=== PATIENT | male | born 1960 | race African-American/Black ===

== ENCOUNTER 2017-04-16 23:13 | Emergency (ER) | payer MEDICAID ==
[~2017-04-16] VITALS: Ht 165.1 cm; Wt 91.0 kg
[2017-04-17] MEDS ORDERED: FAMOTIDINE 20MG/2ML VIAL IV STA (06:24)
[2017-04-17] MEDS ORDERED: SODIUM CHLORIDE 0.9% 1,000 ML IV ONE ×2 (06:24→09:45)
[2017-04-17] MEDS ORDERED: MORPHINE SULFATE 4 MG/ML CPJ (NOT FOR IM USE) IV ONE (06:30)
[2017-04-17 06:47] LABS: BASOPHILS % 0.8 % (0.0-2.0); EOSINOPHILS % 0.1 % (0.0-5.0); HEMATOCRIT. 44.1 % (42.0-52.0); HEMOGLOBIN. 14.2 g/dL (14.0-18.0); LYMPHOCYTES % 19.3 % (20.0-50.0); MEAN CORPUSCULAR VOLUME 74.5 fL (80.0-94.0); MEAN PLATELET VOLUME 7.6 fl (7.4-10.4); MONOCYTES % 8.2 % (2.0-8.0); NEUTROPHILS % 71.6 % (40.0-76.0); PLATELET 319 x1000/uL (130-400); RED BLOOD CELL COUNT 5.92 mill/uL (4.7-6.1); RED CELL DISTRIBUTION WIDTH 14.4 % (11.6-14.6)
[2017-04-17 06:58] LABS: CLARITY URINE CLEAR (CLEAR); COLOR URINE YELLOW (YELLOW); GLUCOSE URINE 3+ (NEGATIVE); KETONES URINE 1+ (NEGATIVE); LEUKOCYTE ESTERASE URINE NEGATIVE (NEGATIVE); NITRITE URINE NEGATIVE (NEGATIVE); OCCULT BLOOD URINE TRACE (NEGATIVE); PROTEIN URINE 1+ (NEGATIVE); SPECIFIC GRAVITY URINE 1.031 (1.005-1.030); UROBILINOGEN URINE 0.2 E.U./dL (0.2-1.0)
[2017-04-17] MEDS ORDERED: MORPHINE SULFATE 2 MG/ML CPJ (NOT FOR IM USE) IV ONE ×2 (07:00)
[2017-04-17 07:02] LABS: CARBON DIOXIDE 27 mEq/L (21-32); CHLORIDE 97 mEq/L (98-107)
[2017-04-17] MEDS ORDERED: IOHEXOL-300 100 ML BOTTLE ONE (08:52)
[2017-04-17 10:43] VITALS: BP 139/73
== END 2017-04-17 10:46 | disposition home or self-care (01) ==
LOC: ER 23:13
DX: K52.9 Noninfective gastroenteritis and colitis, unspecified (principal); E11.9 Type 2 diabetes mellitus without complications; F17.200 Nicotine dependence, unspecified, uncomplicated
CPT/HCPCS: 36415; 74177; 80053; 81001; 82962; 83690; 85025; 96361; 96374; 96375; 99285; J2270; J3490; J7030; Q9967; Z7610

== ENCOUNTER 2019-09-17 14:25 | Inpatient (IN) | payer MEDICAID ==
[2019-09-17] VITALS (9 sets, daily range): BP systolic 123–158; BP diastolic 66–105
[~2019-09-17] VITALS: Ht 177.8 cm; Wt 78.0 kg
[2019-09-17] MEDS ORDERED: SODIUM CHLORIDE 0.9% 1,000 ML IV ONE (15:16)
[2019-09-17] MEDS ORDERED: HYDRALAZINE 20MG/ML VIAL IV ONE ×2 (15:30→16:15)
[2019-09-17 15:47] LABS: BASOPHILS % 0.6 % (0.0-2.0); HEMATOCRIT. 41.4 % (42.0-52.0); LYMPHOCYTES % 10.1 % (20.0-50.0); MEAN CORPUSCULAR HEMOGLOBIN 23.8 pg (28.0-32.0); MEAN CORPUSCULAR VOLUME 76.2 fL (80.0-94.0); MEAN PLATELET VOLUME 8.5 fl (7.4-10.4); MONOCYTES % 6.2 % (2.0-8.0); NEUTROPHILS % 83.1 % (40.0-76.0); PLATELET 335 x1000/uL (130-400); RED BLOOD CELL COUNT 5.44 mill/uL (4.7-6.1); RED CELL DISTRIBUTION WIDTH 14.2 % (11.6-14.6)
[2019-09-17 15:54] LABS: CHLORIDE 86 mEq/L (98-107)
[2019-09-17 15:55] LABS: CLARITY URINE CLEAR (CLEAR); COLOR URINE YELLOW (YELLOW); KETONES URINE 2+ (NEGATIVE); LEUKOCYTE ESTERASE URINE NEGATIVE (NEGATIVE); NITRITE URINE NEGATIVE (NEGATIVE); OCCULT BLOOD URINE 1+ (NEGATIVE); PROTEIN URINE 1+ (NEGATIVE); SPECIFIC GRAVITY URINE 1.027 (1.005-1.030); UROBILINOGEN URINE 0.2 E.U./dL (0.2-1.0)
[2019-09-17 15:55] LABS: PARTIAL THROMBOPLASTIN TIME 20.2 sec (23.4-31.0); PROTHROMBIN TIME 10.7 sec (9.6-11.0)
[2019-09-17] MEDS ORDERED: LORAZEPAM 2MG/ML CPJ ONE (15:56)
[2019-09-17 15:58] LABS: ETHANOL BLOOD < 10 mg/dL
[2019-09-17 16:00] LABS: BETA HYDROXYBUTYRATE 6.8 mMol/L (0.0-0.3)
[2019-09-17] MEDS ORDERED: LEVETIRACETAM 500MG PREMIX 100 ML IV ONE (16:00)
[2019-09-17] MEDS ORDERED: LORAZEPAM 2MG/ML CPJ IV ONE (16:00)
[2019-09-17] MEDS ORDERED: INSULIN REGULAR (DRIP) 100 UNITS in SODIUM CHLORIDE 0.9% 100 ML IV ONE (16:15)
[2019-09-17] MEDS ORDERED: SODIUM CHLORIDE 0.9% 1,000 ML IV STA (16:15)
[2019-09-17] MEDS ORDERED: LABETALOL 5MG/ML SYR 20 MG/4 ML SYRINGE IV ONE (18:45)
[2019-09-17] MEDS ORDERED: ONDANSETRON HCL 4MG/2ML INJ IV PRN (18:45)
[2019-09-17] MEDS ORDERED: CLONIDINE 0.1MG TABLET PO PRN (18:45)
[2019-09-17] MEDS ORDERED: ACETAMINOPHEN 325MG TABLET PO PRN (18:45)
[2019-09-17] MEDS: SODIUM CHLORIDE 0.9% 1,000 ML IV SCH ×2 (20:30→23:08)
[2019-09-17] MEDS ORDERED: LORAZEPAM 2MG/ML CPJ IV PRN (21:00)
[2019-09-17] MEDS ORDERED: DEXTROSE 50% WATER 50ML SYRINGE IV PRN ×2 (21:00)
[2019-09-17] MEDS: AMLODIPINE 5MG TABLET PO SCH (21:21)
[2019-09-17] MEDS: HYDRALAZINE HCL 100MG TABLET PO SCH (21:21)
[2019-09-17] MEDS: BLOOD SUGAR DIAGNOSTIC STRIP TEST SCH ×3 (21:21→23:08)
[2019-09-18] VITALS (35 sets, daily range): BP systolic 101–192; BP diastolic 55–145
[2019-09-18] MEDS: BLOOD SUGAR DIAGNOSTIC STRIP TEST SCH ×12 (00:04→21:34)
[2019-09-18] MEDS: INSULIN REGULAR (DRIP) 100 UNITS in SODIUM CHLORIDE 0.9% 100 ML IV SCH ×2 (00:04→08:28)
[2019-09-18 00:16] LABS: CHLORIDE 104 mEq/L (98-107)
[2019-09-18 00:22] LABS: PHOSPHORUS 2.6 mg/dL (2.5-4.9)
[2019-09-18] MEDS: DEXT 5%/0.45% NACL 500ML 1,000 ML IV SCH ×2 (00:35→08:24)
[2019-09-18 05:14] LABS: BASOPHILS % 0.5 % (0.0-2.0); EOSINOPHILS % 0.1 % (0.0-5.0); HEMATOCRIT. 42.2 % (42.0-52.0); HEMOGLOBIN. 13.3 g/dL (14.0-18.0); LYMPHOCYTES % 13.7 % (20.0-50.0); MEAN CORPUSCULAR HEMOGLOBIN 23.4 pg (28.0-32.0); MEAN CORPUSCULAR VOLUME 74.1 fL (80.0-94.0); MEAN PLATELET VOLUME 8.4 fl (7.4-10.4); MONOCYTES % 8.1 % (2.0-8.0); NEUTROPHILS % 77.6 % (40.0-76.0); PLATELET 325 x1000/uL (130-400); RED BLOOD CELL COUNT 5.69 mill/uL (4.7-6.1); RED CELL DISTRIBUTION WIDTH 13.7 % (11.6-14.6)
[2019-09-18 05:15] LABS: CHLORIDE 106 mEq/L (98-107)
[2019-09-18 05:21] LABS: PHOSPHORUS 2.7 mg/dL (2.5-4.9)
[2019-09-18] MEDS: PANTOPRAZOLE SODIUM 40 MG/VIAL IV SCH (08:22)
[2019-09-18] MEDS: HYDRALAZINE HCL 100MG TABLET PO SCH ×2 (08:25→21:41)
[2019-09-18] MEDS: AMLODIPINE 5MG TABLET PO SCH (08:25)
[2019-09-18] MEDS ORDERED: DEXTROSE 50% WATER 50ML SYRINGE IV PRN (09:30)
[2019-09-18 10:05] LABS: CHLORIDE 109 mEq/L (98-107)
[2019-09-18 10:24] LABS: *AMPHETAMINES SCREEN URINE NEGATIVE (NEGATIVE); *BARBITURATES SCREEN URINE NEGATIVE (NEGATIVE); *BENZODIAZEPINES SCREEN URINE NEGATIVE (NEGATIVE); *COCAINE SCREEN URINE NEGATIVE (NEGATIVE); CANNABINOID URINE SCREEN NEGATIVE (NEGATIVE); PHENCYCLIDINE URINE SCREEN NEGATIVE (NEGATIVE)
[2019-09-18 10:25] LABS: METHADONE URINE SCREEN NEGATIVE (NEGATIVE); OPIATES URINE SCREEN NEGATIVE (NEGATIVE)
[2019-09-18] MEDS: INSULIN GLARGINE UD 100 UNITS/ML SYR SUBCUT SCH ×2 (11:03→21:43)
[2019-09-18 12:22] LABS: CHLORIDE 106 mEq/L (98-107)
[2019-09-18] MEDS: INSULIN LISPRO 100 UNITS/ML SUBCUT SCH ×3 (12:50→21:42)
[2019-09-18] MEDS ORDERED: DILTIAZEM HCL 5MG/ML 5ML VIAL IV SCH (13:45)
[2019-09-18] MEDS: SODIUM CHLORIDE 0.9% 1,000 ML IV SCH ×2 (14:00→23:34)
[2019-09-18] MEDS: AMIODARONE HCL 200 MG TABLET PO SCH ×2 (15:22→18:53)
[2019-09-18 17:01] LABS: CHLORIDE 108 mEq/L (98-107)
[2019-09-18] MEDS ORDERED: DILTIAZEM HCL 30MG TABLET PO SCH (18:00)
[2019-09-18] MEDS: DILTIAZEM HCL 30MG TABLET PO SCH (18:53)
[2019-09-18 20:34] LABS: CHLORIDE 109 mEq/L (98-107)
[2019-09-19] VITALS (46 sets, daily range): BP systolic 107–163; BP diastolic 54–106
[2019-09-19] MEDS: DILTIAZEM HCL 30MG TABLET PO SCH ×4 (00:21→18:17)
[2019-09-19 05:36] LABS: BASOPHILS % 0.7 % (0.0-2.0); EOSINOPHILS % 0.8 % (0.0-5.0); HEMATOCRIT. 41.1 % (42.0-52.0); HEMOGLOBIN. 13.1 g/dL (14.0-18.0); LYMPHOCYTES % 17.6 % (20.0-50.0); MEAN CORPUSCULAR HEMOGLOBIN 23.6 pg (28.0-32.0); MEAN CORPUSCULAR VOLUME 74.3 fL (80.0-94.0); MEAN PLATELET VOLUME 8.7 fl (7.4-10.4); MONOCYTES % 7.8 % (2.0-8.0); NEUTROPHILS % 73.1 % (40.0-76.0); PLATELET 302 x1000/uL (130-400); RED BLOOD CELL COUNT 5.54 mill/uL (4.7-6.1); RED CELL DISTRIBUTION WIDTH 13.6 % (11.6-14.6)
[2019-09-19 05:40] LABS: CHLORIDE 109 mEq/L (98-107)
[2019-09-19] MEDS: BLOOD SUGAR DIAGNOSTIC STRIP TEST SCH ×4 (07:43→21:21)
[2019-09-19] MEDS: PANTOPRAZOLE SODIUM 40 MG/VIAL IV SCH (07:44)
[2019-09-19] MEDS: INSULIN LISPRO 100 UNITS/ML SUBCUT SCH ×4 (07:44→21:21)
[2019-09-19] MEDS: AMIODARONE HCL 200 MG TABLET PO SCH (07:44)
[2019-09-19] MEDS: HYDRALAZINE HCL 100MG TABLET PO SCH ×2 (07:45→21:21)
[2019-09-19] MEDS: INSULIN GLARGINE UD 100 UNITS/ML SYR SUBCUT SCH ×2 (09:51→21:23)
[2019-09-19] MEDS: SODIUM CHLORIDE 0.9% 1,000 ML IV SCH ×2 (09:51→20:00)
[2019-09-19] MEDS: LISINOPRIL 5MG TABLET PO SCH (21:21)
[2019-09-20] VITALS (44 sets, daily range): BP systolic 97–170; BP diastolic 40–100
[2019-09-20] MEDS: DILTIAZEM HCL 30MG TABLET PO SCH ×4 (00:03→17:28)
[2019-09-20] MEDS: SODIUM CHLORIDE 0.9% 1,000 ML IV SCH ×2 (02:37→14:21)
[2019-09-20 05:46] LABS: BASOPHILS % 0.4 % (0.0-2.0); EOSINOPHILS % 1.5 % (0.0-5.0); HEMATOCRIT. 39.7 % (42.0-52.0); HEMOGLOBIN. 12.4 g/dL (14.0-18.0); LYMPHOCYTES % 18.1 % (20.0-50.0); MEAN CORPUSCULAR HEMOGLOBIN 23.6 pg (28.0-32.0); MEAN CORPUSCULAR VOLUME 75.5 fL (80.0-94.0); MEAN PLATELET VOLUME 8.7 fl (7.4-10.4); PLATELET 255 x1000/uL (130-400); RED BLOOD CELL COUNT 5.27 mill/uL (4.7-6.1); RED CELL DISTRIBUTION WIDTH 14.6 % (11.6-14.6)
[2019-09-20 05:53] LABS: CHLORIDE 112 mEq/L (98-107)
[2019-09-20] MEDS: BLOOD SUGAR DIAGNOSTIC STRIP TEST SCH ×4 (07:50→21:05)
[2019-09-20] MEDS: HYDRALAZINE HCL 100MG TABLET PO SCH ×2 (08:01→21:05)
[2019-09-20] MEDS: LISINOPRIL 5MG TABLET PO SCH ×2 (08:01→21:05)
[2019-09-20] MEDS: PANTOPRAZOLE SODIUM 40 MG/VIAL IV SCH (08:01)
[2019-09-20] MEDS: INSULIN LISPRO 100 UNITS/ML SUBCUT SCH ×4 (08:02→21:04)
[2019-09-20] MEDS: INSULIN GLARGINE UD 100 UNITS/ML SYR SUBCUT SCH ×2 (10:22→21:31)
[2019-09-20] MEDS: ENOXAPARIN 40MG/0.4ML SYR SUBCUT SCH (15:57)
[2019-09-21] VITALS (18 sets, daily range): BP systolic 106–177; BP diastolic 51–88
[2019-09-21] MEDS: DILTIAZEM HCL 30MG TABLET PO SCH ×3 (00:02→11:56)
[2019-09-21] MEDS: SODIUM CHLORIDE 0.9% 1,000 ML IV SCH ×2 (00:02→08:12)
[2019-09-21 05:20] LABS: BASOPHILS % 0.8 % (0.0-2.0); EOSINOPHILS % 1.1 % (0.0-5.0); HEMATOCRIT. 36.2 % (42.0-52.0); HEMOGLOBIN. 11.4 g/dL (14.0-18.0); LYMPHOCYTES % 20.6 % (20.0-50.0); MEAN CORPUSCULAR HEMOGLOBIN 23.4 pg (28.0-32.0); MEAN CORPUSCULAR VOLUME 74.4 fL (80.0-94.0); MEAN PLATELET VOLUME 8.6 fl (7.4-10.4); MONOCYTES % 9.4 % (2.0-8.0); NEUTROPHILS % 68.1 % (40.0-76.0); PLATELET 239 x1000/uL (130-400); RED BLOOD CELL COUNT 4.87 mill/uL (4.7-6.1); RED CELL DISTRIBUTION WIDTH 14.1 % (11.6-14.6)
[2019-09-21 05:47] LABS: CHLORIDE 109 mEq/L (98-107)
[2019-09-21] MEDS: BLOOD SUGAR DIAGNOSTIC STRIP TEST SCH ×2 (08:19→11:56)
[2019-09-21] MEDS: INSULIN LISPRO 100 UNITS/ML SUBCUT SCH ×2 (08:27→12:02)
[2019-09-21] MEDS: PANTOPRAZOLE SODIUM 40 MG/VIAL IV SCH (08:30)
[2019-09-21] MEDS: LISINOPRIL 5MG TABLET PO SCH (08:58)
[2019-09-21] MEDS: HYDRALAZINE HCL 100MG TABLET PO SCH (08:58)
[2019-09-21] MEDS: INSULIN GLARGINE UD 100 UNITS/ML SYR SUBCUT SCH (11:06)
[2019-09-21] MEDS ORDERED: DILTIAZEM HCL 300MG CAPSULE SR 24HR PO SCH (14:00)
[2019-09-21] MEDS: ENOXAPARIN 40MG/0.4ML SYR SUBCUT SCH (15:00)
[2019-09-21] MEDS ORDERED: INSULIN LISPRO 100 UNITS/ML SUBCUT SCH (17:20)
[2019-09-21] MEDS ORDERED: LISINOPRIL 10MG TABLET PO SCH (21:00)
== END 2019-09-21 15:50 | disposition home or self-care (01) | DRG 420 ==
LOC: ER 14:45 → EDBEDREQSVC 17:14 → CVICU 18:25 → EDBEDREQ 18:27 → EDBEDREQTM 18:27 → ENRESERV 19:25 → 6WST 09-21 08:21
PROVIDERS: ADMIT Internal Medicine; ATTEND Internal Medicine
DX: E11.65 Type 2 diabetes mellitus with hyperglycemia (principal); N17.0 Acute kidney failure with tubular necrosis; G92 Toxic encephalopathy; E11.10 Type 2 diabetes mellitus with ketoacidosis without coma; R65.10 Systemic inflammatory response syndrome (SIRS) of non-infectious origin without acute organ dysfunction; E87.8 Other disorders of electrolyte and fluid balance, not elsewhere classified; E44.1 Mild protein-calorie malnutrition; E87.5 Hyperkalemia; E86.0 Dehydration; E87.1 Hypo-osmolality and hyponatremia; I10 Essential (primary) hypertension; I16.0 Hypertensive urgency; Z79.4 Long term (current) use of insulin; Q86.0 Fetal alcohol syndrome (dysmorphic); I47.1 Supraventricular tachycardia
CPT/HCPCS: 36415; 71045; 80048; 80053; 80305; 80320; 81003; 82010; 82140; 82962; 83036; 83735; 83880; 84100; 84484; 85025; 93005; 93306; 99291; C9113; J0360; J1650; J1815; J1953; J2060; J3490; J7030; J7050; G0480